=== PATIENT | female | born 1945 | race Caucasian/White ===

== ENCOUNTER 2018-09-01 13:30 | Emergency (ER) | payer MEDICARE, SELFPAY ==
[~2018-09-01] VITALS: Ht 167.6 cm; Wt 133.8 kg
--- NOTE | 2018-09-01 14:58 | PHYS DOC ---
Past Medical History Past Medical History: A-Fib, COPD, Hypertension Past Surgical History: No Surgical History Alcohol Use: None Drug Use: None Adult General Chief Complaint Chief Complaint: SHORTNESS OF BREATH HPI HPI Patient is a 73 year old female with history of COPD on home oxygen who wrote him by EMS because of shortness of breath. Patient was at a local restaurant and her oxygen ran out and she didn't have any more oxygen and had shortness of lucy th with hypoxia. EMS oxygen with improvement of condition. Patient denies any chest pain, shortness of breath, cough, focal neuro deficit at arrival to ER. Review of Systems Review of Systems Constitutional: Denies fever or chills [] Eyes: Denies change in visual acuity, redness, or eye pain [] HENT: Denies nasal congestion or sore throat [] Respiratory: Denies cough or shortness of breath [] Cardiovascular: No additional information not addressed in HPI [] GI: Denies abdominal pain, nausea, vomiting, bloody stools or diarrhea [] : Denies dysuria or hematuria [] Musculoskeletal: Denies back pain or joint pain [] Integument: Denies rash or skin lesions [] Neurologic: Denies headache, focal weakness or sensory changes [] Endocrine: Denies polyuria or polydipsia [] All other systems were reviewed and found to be within normal limits, except as documented in this note. Current Medications Current Medications Current Medications Medications (Trade) Dose Ordered Sig/Desean Start Time Stop Time Status Last Admin Dose Admin Diltiazem HCl (Cardizem 24hr Cd) 240 mg 1X STAT 09/01/18 13:42 09/01/18 13:50 DC 09/01/18 13:55 240 MG Allergies Allergies Allergies Uncoded Allergies Type Severity Reaction Last Updated Verified steroid containing drugs Adverse Reaction Mild tremors 09/01/18 Physical Exam Physical Exam Constitutional: Well developed, well nourished, no acute distress, non-toxic appearance. [] HENT: Normocephalic, atraumatic, bilateral external ears normal, oropharynx moist, no oral exudates, nose normal. [] Eyes: PERRLA, EOMI, conjunctiva normal, no discharge. [] Neck: Normal range of motion, no tenderness, supple, no stridor. [] Cardiovascular: Irregularly irregular rhythm , no murmur [] Lungs & Thorax: Bilateral breath sounds clear to auscultation [] Abdomen: Bowel sounds normal, soft, no tenderness, no masses, no pulsatile masses. [] Skin: Warm, dry, no erythema, no rash. [] Back: No tenderness, no CVA tenderness. [] Extremities: No tenderness, no cyanosis, no clubbing, ROM intact, no edema. [] Neurologic: Alert and oriented X 3, normal motor function, normal sensory function, no focal deficits noted. [] Psychologic: Affect normal, judgement normal, mood normal. [] Current Patient Data Vital Signs Vital Signs Date Time Temp Pulse Resp B/P (MAP) Pulse Ox O2 Delivery O2 Flow Rate FiO2 09/01/18 15:15 96 20 132/78 (96) 96 Nasal Cannula 3.0 09/01/18 13:50 98.6 98.6 EKG EKG EKG interpreted by me. EKG at 1338 showed atrial fibrillation at rate of 114, abnormal left axis deviation, left anterior fascicular block, poor R-wave progress in anteroseptal leads, no acute ST and T-wave abnormalities. Radiology/Procedures Radiology/Procedures [] Course & Med Decision Making Course & Med Decision Making Evaluation of patient in ER showed 72-year-old female patient with history of COPD on home oxygen brought in by EMS after developed shortness of breath because she ran out of the oxygen. Patient condition improved after starting oxygen by EMS. Patient had history of atrial fibrillation and had heart rate of 100s with A. fib in ER and treated with Cardizem 240 mg by mouth with improvement of heart rate to 80s with atrial fibrillation. Patient did not have any complaint while she was in ER and didn't want more workup regarding her shortness of breath. Patient's son brought her home oxygen and patient was discharged home at stable condition. Dragon Disclaimer Dragon Disclaimer This electronic medical record was generated, in whole or in part, using a voice recognition dictation system. Departure Departure Impression: Primary Impression: Shortness of breath Additional Impressions: Oxygen supply absent Atrial fibrillation Disposition: HOME, SELF-CARE (at 1456) Condition: IMPROVED Referrals: MARNI SCALES (PCP) Patient Instructions: Oxygen Use at Home Additional Instructions: Continue home medication Follow-up with your primary care physician in 3-5 days Return to ER if not getting better Problem Qualifiers Additional Impressions: Atrial fibrillation Atrial fibrillation type: chronic Qualified Codes: I48.2 - Chronic atrial fibrillation MIKEY DILLON MD September 01, 2018 14:58
[2018-09-01 15:15] VITALS: BP 132/78
--- NOTE | 2018-09-03 08:38 | EKG ---
[facility] [address] [place] [address] Test Date: 2018-09-01 Test Time: 13:38:08 Pat Name: BECCA SHEPHERD Department: Room: Gender: F [employer]: : 1945 Requested By: MIKEY DILLON Order Number: [id number] Reading MD: Bobby Gonzalez Measurements Intervals [place] Rate: 114 P: VA: QRS: -46 QRSD: 114 T: 84 QT: 354 QTc: 491 Interpretive Statements ATRIAL FIB./FLUTTER WITH RAPID VENTRICULAR RESPONSE ABNORMAL LEFT AXIS DEVIATION LOW LIMB LEAD VOLTAGE LEFT ANTERIOR FASCICULAR BLOCK ST & T ABNORMALITY, CONSIDER HIGH LATERAL ISCHEMIA OR LEFT VENTRICULAR STRAIN ABNORMAL ECG Electronically Signed On 09-21-2018 12:42:22 CDT by Bobby Gonzalez
== END 2018-09-01 15:34 | disposition home or self-care (01) ==
LOC: ER 13:30
DX: R06.02 Shortness of breath (principal); R09.02 Hypoxemia; I48.2 Chronic atrial fibrillation; I10 Essential (primary) hypertension; J44.9 Chronic obstructive pulmonary disease, unspecified; Z88.8 Allergy status to other drugs, medicaments and biological substances
CPT/HCPCS: 93005; 99284; 99285